=== PATIENT | female | born 1960 | race Caucasian/White ===

== ENCOUNTER 2019-05-08 07:56 | Outpatient (CLI) | payer OTHER, SELFPAY ==
--- NOTE | ~2019-05-08 | MM_ITS ---
EXAMINATION: MM screening nicolasa BI w cecile HISTORY: Screening mammogram, family history of breast cancer in her mother. TECHNIQUE: Craniocaudal and mediolateral oblique 3-D tomosynthesis images were obtained and synthetic 2-D images were generated. CAD analysis was submitted and interpreted. COMPARISON: 05/06/2018, 05/03/2017, 04/25/2016 BREAST PARENCHYMAL COMPOSITION: There are scattered areas of fibroglandular density. FINDINGS: Scattered benign-appearing calcifications are present. A mass in the upper outer quadrant o f the right breast is stable on multiple prior examinations, consistent with a benign finding. There is no evidence of suspicious mass, calcification, or architectural distortion to suggest malignancy i n either breast. There has been no suspicious interval change. IMPRESSION: 1. No mammographic evidence of malignancy. 2. Recommend routine screening mammography in one year. BI-RADS Category 2: Benign finding(s). Reviewed, dictated and finalized at location A. OR DIGITAL DESIGNER
== END 2019-05-08 07:57 | disposition home or self-care (01) ==
LOC: ANHIMG 07:59
PROVIDERS: PCP Internal Medicine; Visit Provider Student in an Organized Health Care Education/Training Program
DX: Z12.31 Encounter for screening mammogram for malignant neoplasm of breast (principal)
CPT/HCPCS: 77063; 77067

== ENCOUNTER → 2019-12-03 15:12 | Outpatient (CLI) | payer OTHER, SELFPAY ==
--- NOTE | ~2019-12-03 | XR_ITS ---
XR foot RT min 3V DATE: 12/03/2019 16:14 INDICATION: Right foot pain TECHNIQUE: 4 views COMPARISON: 06/05/2016 right foot FINDINGS: There is plantar calcaneal enthesopathy. There is osteoarthritis primarily at the articulation of the navicular with the cuneiform bones, at t he fourth and fifth tarsometatarsal areas and distal interphalangeal joint of the third digit. No fracture, dislocation, periosteal reaction or bone destruction is detected. IMPRESSION: Polyarticular osteoarthritis Plantar calcaneal enthesopathy Reviewed, dictated and finalized at location A.
== END ==
PROVIDERS: Visit Provider Internal Medicine
DX: M19.071 Primary osteoarthritis, right ankle and foot (principal); M77.31 Calcaneal spur, right foot
CPT/HCPCS: 73630

== ENCOUNTER 2020-05-10 08:54 | Outpatient (CLI) | payer OTHER, SELFPAY ==
--- NOTE | ~2020-05-10 | MM_ITS ---
EXAMINATION: MM screening nicolasa BI w cecile HISTORY: Screening mammogram TECHNIQUE: Craniocaudal and mediolateral oblique 3-D tomosynthesis images were obtained and synthetic 2-D images were generated. CAD analysis was submitted and interpreted. COMPARISON: May 08, 2019, May 06, 2018, May 03, 2017 bilateral digital screening mammogra m examinations BREAST PARENCHYMAL COMPOSITION: There are scattered areas of fibroglandular density. FINDINGS: There is a 3 mm mass in the lower central anterior right breast at approximately 5:30 o'domi ck. Diagnostic right mammogram and right breast ultrasound examination are recommended. Otherwise there is no evidence of suspicious mass, calcification, or architectural distortion to sugg est malignancy in either breast. There has been no other suspicious interval change. Bilateral benign calcifications. IMPRESSION: 1. 3 mm mass at approximately 5:30 o'clock, right breast 2. Diagnostic right mammogram and right breast ultrasound examination are recommended. BI-RADS Category 0: Incomplete: Needs additional imaging evaluation. Reviewed, dictated and finalized at location A. [employer] IMPRESSION: 1. 3 mm mass at approximately 5:30 o'clock, right breast 2. Diagnostic right mammogram and right breast ultrasound examination are recom mended. BI-RADS Category 0: Incomplete: Needs additional imaging evaluation.
--- NOTE | ~2020-05-10 | DEXA_ITS ---
Bone Density Report Name: Ketty Birmingham Age: 59 Sex: Female Ethnicity: White Date of : 1960 Indication: postmenopausal; height loss; hysterectomy; Referring Provider: Catie Seo Study: Bone densitometry was performed. Exam Date: May 10, 2020 Accession number: [id number] Bone Density: Region BMD T-score Z-score Classification AP Spine (L1-L4) 1.139 0.8 2.4 Normal Femoral Neck (Left) 0.719 -1.2 0.2 Osteopenia Total Hip (Left) 0.891 -0.4 0.6 Normal Total Hip Bilateral Avg 0.870 -0.6 0.5 Normal Femoral Neck (Right) 0.725 -1.1 0.3 Osteopenia Total Hip (Right) 0.848 -0.8 0.3 Normal World Health Organization criteria for BMD impression classify patients as: Normal (T-score at or above -1.0), Osteopenia (T-score between -1.0 and -2.5), or Osteoporosis (T-score at or below -2.5). 10-year Fracture Risk(1): Major Osteoporotic Fracture 7.0% Hip Fracture 0.5% Reported Risk Factors: [place] (), Neck BMD=0.719, BMI=38.4 (1) FRAX(R) Version 3.08. Fracture probability calculated for an untreated patient. Fracture probability may be lower if the patient has received treatment. Previous Exams: Region Exam Age BMD T-score BMD Change BMD Change Date g/cm2 vs Baseline vs Previous AP Spine(L1-L4) 05/10/2020 59 1.139 0.8 -0.171(-13.1%) -0.021(-1.8%)# 02/27/2012 51 1.160 1.0 -0.151(-11.5%) -0.151(-11.5%) 07/23/2009 49 1.310 2.4 Total Hip(Left) 05/10/2020 59 0.891 -0.4 -0.127(-12.5%) -0.109(-10.9%) 05/06/2018 57 1.000 0.5 -0.018(-1.7%)# 0.024(2.4%) 04/25/2016 55 0.977 0.3 -0.041(-4.1%)# -0.001(-0.1%) 03/02/2014 53 0.977 0.3 -0.041(-4.0%)# 0.001(0.1%)# 02/27/2012 51 0.977 0.3 -0.041(-4.0%)# -0.041(-4.0%)# 07/23/2009 49 1.018 0.6 Total Hip(Right) 05/10/2020 59 0.848 -0.8 -0.156(-15.6%) -0.101(-10.7%) 05/06/2018 57 0.950 0.1 -0.055(-5.5%)# 0.057(6.3%)* 04/25/2016 55 0.893 -0.4 -0.112(-11.1%) 0.055(6.5%)* 03/02/2014 53 0.838 -0.9 -0.167(-16.6%) -0.103(-11.0%) 02/27/2012 51 0.941 0.0 -0.063(-6.3%)# -0.063(-6.3%)# 07/23/2009 49 1.005 0.5 *Denotes significance at 95% confidence level, LSC for AP Spine = 0.022 g/cm2, LSC for Total Hip = 0.027 g/cm2 Clinical Information Provided by Patient: Has used the following medications: Vitamin D, Calcium Has the following medical conditions: Hysterectomy Patient maximum height was 60 Menopause Age: 51 No regular weight bearing exercise Drinks caff
== END 2020-05-10 08:55 | disposition home or self-care (01) ==
PROVIDERS: PCP Internal Medicine; Visit Provider Student in an Organized Health Care Education/Training Program
DX: Z12.31 Encounter for screening mammogram for malignant neoplasm of breast (principal); Z78.0 Asymptomatic menopausal state; R92.8 Other abnormal and inconclusive findings on diagnostic imaging of breast; M85.89 Other specified disorders of bone density and structure, multiple sites
CPT/HCPCS: 77063; 77067; 77080

== ENCOUNTER 2020-06-03 13:30 | Outpatient (CLI) | payer OTHER, SELFPAY ==
--- NOTE | ~2020-06-03 | MMUS_ITS ---
EXAMINATION: MM diagnostic nicolasa RT w cceile, US breast RT limited HISTORY: Follow-up 3 mm right breast mass TECHNIQUE: Additional 3-D tomosynthesis images of the right breast were performed and synthetic 2-D i mages were generated. CAD analysis was submitted and interpreted. High resolution right breast ultras ound was performed. COMPARISON: Comparison to multiple prior studies sequentially, with oldest reviewed study dated 04/25. BREAST PARENCHYMAL COMPOSITION: Breast composed of scattered areas of fibroglandular density. FINDINGS: MAMMOGRAPHIC FINDINGS: There is a small 2-3 mm circumscribed benign-appearing mass lower inner quadrant of the right breast near the nipple. There are benign right breast calcifications. No suspicious architectural distortion or clustered calcifications. ULTRASOUND: Limited right breast ultrasound: At 9:00 in the subareolar location of the right breast there is a mi ldly prominent duct with adjacent calcification causing shadowing. No suspicious masses are identifie d to suggest malignancy. IMPRESSION: 1. Probable benign 2-3 mm right breast mass, lower inner quadrant. No definite sonographic correlate. 2. Recommend 6 month follow-up diagnostic right mammogram BI-RADS category 3, probably benign findings. Reviewed, dictated and finalized at location A. E PATCH MOLDER IMPRESSION: 1. Probable benign 2-3 mm right breast mass, lower inner quadrant. No definite sonographic correlate. 2. Recommend 6 month follow-up diagnostic right mammogram BI-RADS category 3, probably benign findings.
== END 2020-06-03 13:31 | disposition home or self-care (01) ==
LOC: ANHIMG 13:32
PROVIDERS: PCP Internal Medicine; Visit Provider Student in an Organized Health Care Education/Training Program
DX: R92.8 Other abnormal and inconclusive findings on diagnostic imaging of breast (principal)
CPT/HCPCS: 76642; 77061; 77065; G0279

== ENCOUNTER 2020-09-21 09:11 | Emergency (ER) | payer OTHER, SELFPAY ==
[2020-09-21 09:14] VITALS: BP 141/99; PULSE 68; RESP 15; TEMP 36.8; O2SAT 99
[2020-09-21] MEDS: diphenhydrAMINE HCl INJ 50 MG/ML VIAL 25 MG IV PUSH (09:46)
[2020-09-21] MEDS: FAMOTIDINE 20 MG/2 ML VIAL IV PUSH (09:47)
[2020-09-21] MEDS: EPINEPHrine HCL INJ 1 MG/ML AMPUL 0.3 MG IM (09:48)
--- NOTE | 2020-09-21 12:53 | ED.GENADULT ---
HPI - General Adult General Chief complaint: Allergic Reaction Stated complaint: ? Allergic reaction Time Seen by Provider: 09/21/20 09:14 Source: patient, family and RN notes reviewed Mode of arrival: ambulatory Limitations: no limitations History of Present Illness HPI narrative: Patient is a 60-year-old female who presents noting the sensation of her throat tightening and tongue swelling that began at 830 this morning after a sneezing fit patient denies similar occurrence in the past patient took 25 mg of Benadryl just prior to arrival and notes on arrival to the emergency department she feels as though her symptoms have improved. Patient denies any similar occurrence in the past or known allergic responses patient notes she is on lisinopril but has been for over 20 years. With no issues in the past Related Data Home Medications Medication Instructions Recorded Confirmed multivitamin 1 tablet PO DAILY 08/24/20 08/24/20 Allergies Allergy/AdvReac Type Severity Reaction Status Date / Time Sulfa (Sulfonamide Allergy Unknown Hives Verified 09/21/20 09:27 Antibiotics) sulfanilamide Allergy Unknown Hives Verified 09/21/20 09:27 Review of Systems Review of Systems: All systems reviewed & are unremarkable except as noted in HPI and below PMFSH Past Medical History Medical History Arthritis Heart murmur History of vaginal delivery x 2 Hypertension Surgical History Surgical History History of carpal tunnel release History of knee replacement History of total hysterectomy with bilateral salpingo-oophorectomy (BSO) Family History Family History Mother Patient's mother is Family history of malignant neoplasm of breast in first degree relative, Onset Age: 54 Father Patient's father is Hypertension, Onset Age: 70 Family history of chronic obstructive pulmonary disease, Onset Age: 70 Sibling Patient's sister is in good health Social History Social History Smoking status: Former smoker Second hand tobacco smoke exposure: No Smoking end date: 04/02/85 Alcohol intake: current Exam Narrative: Exam Narrative: GENERAL: Well-appearing, well-nourished, and in no acute distress. HEAD: Normocephalic, atraumatic. EYES: PERRLA and EOMI. ENT: Nares clear, no rhinorrhea or epistaxis. Mucous membranes moist. Minimal angioedema involving the uvula with slight tonsillar hypertrophy no other abnormalities in the oropharynx patient notes subjective tongue swelling very difficult to appreciate on exam NECK: Supple. No adenopathy or masses. No stridor CHEST: Clear to auscultation. No respiratory distress. No wheezes rales or rhonchi HEART: Regular rate and rhythm. No murmur heard. EXTREMITIES: Normal range of motion. No edema. SKIN: Warm, dry, no rash. NEURO: No focal deficits. Alert and oriented x3. Cranial nerves II through XII grossly intact PSYCH: Normal mood and affect. Course Course Emergency Course: Patient in the room in no distress aware of case findings treatment plan diagnosis discussion with primary care and agrees to follow-up as instructed patient is afebrile nontoxic-appearing no distress was given medications with improvement feels much better at this time agrees to follow-up as instructed and is aware of recommendations by her primary care doctor and agrees with this plan Consultations Consultation #1: Discussed case with Dr. Lewis the patient's primary care doctor who will follow the patient in clinic to review her lisinopril and for reevaluation of her reaction and agrees with the treatment plan for discharge home Date: 09/21/20 Time: 12:58 Vital Signs Vital signs: Vital Signs Temperature 98.2 F 09/21/20 09:14 Pulse Rate
[2020-09-21 13:17] VITALS: BP 142/71; PULSE 97; RESP 18; O2SAT 96
== END 2020-09-21 13:19 | disposition home or self-care (01) ==
PROVIDERS: Emergency Provider Emergency Medicine; PCP Internal Medicine
DX: T78.3XXA Angioneurotic edema, initial encounter (principal); M19.90 Unspecified osteoarthritis, unspecified site; I10 Essential (primary) hypertension; Z87.891 Personal history of nicotine dependence
CPT/HCPCS: 96372; 96374; 96375; 99284; J0171; J1100; J1200

== ENCOUNTER 2020-12-13 14:02 | Outpatient (CLI) | payer OTHER, SELFPAY ==
--- NOTE | ~2020-12-13 | MMUS_ITS ---
EXAMINATION: MM diagnostic nicolasa RT w cecile, US breast RT limited HISTORY: Follow-up right breast mass TECHNIQUE: Additional 3-D tomosynthesis images of right were performed and synthetic 2-D images were generated. CAD analysis was submitted and interpreted. High resolution Limited right breast ultrasoun d was performed. COMPARISON: Comparison to multiple prior studies sequentially, with oldest reviewed study dated 04/2017. BREAST PARENCHYMAL COMPOSITION: Breast composed of scattered areas of fibroglandular density. FINDINGS: MAMMOGRAPHIC FINDINGS: There is a small mass in the upper outer quadrant of the right breast, middle depth. No suspicious ca lcifications or architectural distortion. ULTRASOUND: Limited right breast ultrasound: At 10:00, 5 cm from the nipple, there are 2 adjacent cysts measuring up to 5 mm in aggregate. No suspicious masses to suggest malignancy. IMPRESSION: 1. No evidence for malignancy in the right breast. Benign findings. 2. Routine yearly screening mammogram and regular clinical breast examination are recommended. BI-RADS Category 2: Benign finding(s). Reviewed, dictated and finalized at location A. IMPRESSION: 1. No evidence for malignancy in the right breast. Benign findings. 2. Routine yearly screening mammogram and regular clinical breast examination a re recommended. BI-RADS Category 2: Benign finding(s).
== END 2020-12-13 14:03 | disposition home or self-care (01) ==
LOC: ANHIMG 14:03
PROVIDERS: PCP Internal Medicine; Visit Provider Student in an Organized Health Care Education/Training Program
DX: N63.11 Unspecified lump in the right breast, upper outer quadrant (principal); N60.01 Solitary cyst of right breast
CPT/HCPCS: 76642; 77061; 77065; G0279

== ENCOUNTER 2021-05-23 08:53 | Outpatient (CLI) | payer OTHER, SELFPAY ==
--- NOTE | ~2021-05-23 | MM_ITS ---
EXAMINATION: MM screening nicolasa BI w cecile HISTORY: Screening mammogram TECHNIQUE: Craniocaudal and mediolateral oblique 3-D tomosynthesis images were obtained and synthetic 2-D images were generated. CAD analysis was submitted and interpreted. COMPARISON: 12/13/2020 and 06/23/2020 diagnostic right mammogram and limited right breast ultrasound 05/10/2020, 05/08/2019, 05/06/2018 bilateral screening mammogram bilateral screening mammogram bilateral screening mammogram BREAST PARENCHYMAL COMPOSITION: There are scattered areas of fibroglandular density. FINDINGS: There are benign calcifications, primarily secretory type. There is no evidence of suspicio us mass, calcification, or architectural distortion to suggest malignancy in either breast. There has been no suspicious interval change. IMPRESSION: 1. No mammographic evidence of malignancy. 2. Recommend routine screening mammography in one year. BI-RADS Category 2: Benign finding(s). Reviewed, dictated and finalized at location A. OON DIPPER
== END 2021-05-23 08:54 | disposition home or self-care (01) ==
LOC: ANHIMG 08:54
PROVIDERS: PCP Internal Medicine; Visit Provider Student in an Organized Health Care Education/Training Program
DX: Z12.31 Encounter for screening mammogram for malignant neoplasm of breast (principal)
CPT/HCPCS: 77063; 77067

== ENCOUNTER 2022-05-25 07:47 | Outpatient (CLI) | payer OTHER, SELFPAY ==
--- NOTE | ~2022-05-25 | DEXA_ITS ---
Bone Density Report Name: ROBB MOELLER Age: 62 Sex: Female Ethnicity: White Date of : 1960 Indication: postmenopausal; screening for osteoporosis; height loss; hysterectomy; Referring Provider: ASTRID MURILLO Study: Bone densitometry was performed. Exam Date: May 25, 2022 Accession number: [id number] Bone Density: Region BMD T-score Z-score Classification AP Spine(L1-L4) 1.125 0.7 2.4 Normal Femoral Neck (Left) 0.670 -1.6 -0.2 Osteopenia Total Hip (Left) 0.929 -0.1 1.1 Normal Femoral Neck (Right) 0.663 -1.7 -0.2 Osteopenia Total Hip (Right) 0.898 -0.4 0.8 Normal Total Hip Mean 0.913 -0.3 1.0 Normal World Health Organization criteria for BMD impression classify patients as: Normal (T-score at or above -1.0), Osteopenia (T-score between -1.0 and -2.5), or Osteoporosis (T-score at or below -2.5). 10-year Fracture Risk(1): Major Osteoporotic Fracture 8.3% Hip Fracture 0.8% Reported Risk Factors: [place] (), Neck BMD=0.670, BMI=37.2 (1) FRAX(R) Version 3.08. Fracture probability calculated for an untreated patient. Fracture probability may be lower if the patient has received treatment. Previous Exams: Region Exam Age BMD T-score BMD Change BMD Change Date g/cm2 vs Baseline vs Previous AP Spine (L1-L4) 05/25/2022 62 1.125 0.7 -0.035 (-3.0%) -0.014 (-1.2%) 05/10/2020 59 1.139 0.8 -0.021 (-1.8%) -0.021 (-1.8%) 02/27/2012 51 1.160 1.0 Total Hip(Left) 05/25/2022 62 0.929 -0.1 -0.048 (-4.9%) 0.038 (4.3%)* 05/10/2020 59 0.891 -0.4 -0.086 (-8.8%) -0.109 (-10.9% 05/06/2018 57 1.000 0.5 0.024 (2.4%)# 0.024 (2.4%) 04/25/2016 55 0.977 0.3 0.000 (0.0%)# -0.001 (-0.1%) 03/02/2014 53 0.977 0.3 0.001 (0.1%)# 0.001 (0.1%)# 02/27/2012 51 0.977 0.3 Total Hip(Right) 05/25/2022 62 0.898 -0.4 -0.044 (-4.7%) 0.049 (5.8%)* 05/10/2020 59 0.848 -0.8 -0.093 (-9.9%) -0.101 (-10.7% 05/06/2018 57 0.950 0.1 0.008 (0.9%)# 0.057 (6.3%)* 04/25/2016 55 0.893 -0.4 -0.048 (-5.1%) 0.055 (6.5%)* 03/02/2014 53 0.838 -0.9 -0.103 (-11.0% -0.103 (-11.0% 02/27/2012 51 0.941 0.0 *Denotes significance at 95% confidence level, LSC for AP Spine = 0.022 g/cm2, LSC for Total Hip = 0.027 g/cm2 # Denotes dissimilar scan types or analysis methods Clinical Information Provided by Patient: Has the following medical conditions: Hysterectomy Patient maximum height was 59 Menopause Age: 51 No
--- NOTE | ~2022-05-25 | MM_ITS ---
EXAMINATION: MM screening nicolasa BI w cecile HISTORY: Screening mammogram TECHNIQUE: Craniocaudal and mediolateral oblique 3-D tomosynthesis images were obtained and synthetic 2-D images were generated. CAD analysis was submitted and interpreted. COMPARISON: 05/23/2021 bilateral screening mammogram 12/13/2020 diagnostic right mammogram and limited right breast ultrasound 3. diagnostic right mammogram and limited right breast ultrasound , , 05/2018 bilateral screening mammogram examinations BREAST PARENCHYMAL COMPOSITION: There are scattered areas of fibroglandular density. FINDINGS: Approximately 3.3 x 3.7mm mass is noted anteriorly in the lower outer left breast near mid sagittal plane. Diagnostic right mammogram and right breast ultrasound examination are recommended. Scattered bilateral benign calcifications. No suspicious mass, architectural distortion, malignant ca lcification, skin thickening or retraction or significant new or developing density is noted otherwis e. IMPRESSION: 1. 3.3 x 3.7 mm mass in the anterior lower outer right breast near mid sagittal plane. 2. Diagnostic right mammogram and right breast ultrasound examination are recommended BI-RADS Category 0: Incomplete: Needs additional imaging evaluation. Reviewed, dictated and finalized at location A. E ERECTOR SUPERVISOR IMPRESSION: 1. 3.3 x 3.7 mm mass in the anterior lower outer right breast near mid sagittal plane. 2. Diagnostic right mammogram and right breast ultrasound examination are recom mended BI-RADS Category 0: Incomplete: Needs additional imaging evaluation.
== END 2022-05-25 07:48 | disposition home or self-care (01) ==
PROVIDERS: PCP Internal Medicine; Visit Provider Student in an Organized Health Care Education/Training Program
DX: Z12.31 Encounter for screening mammogram for malignant neoplasm of breast (principal); Z78.0 Asymptomatic menopausal state; R92.8 Other abnormal and inconclusive findings on diagnostic imaging of breast; M85.852 Other specified disorders of bone density and structure, left thigh; M85.851 Other specified disorders of bone density and structure, right thigh
CPT/HCPCS: 77063; 77067; 77080

== ENCOUNTER 2022-06-09 13:17 | Outpatient (CLI) | payer OTHER, SELFPAY ==
--- NOTE | ~2022-06-09 | MMUS_ITS ---
EXAMINATION: MM diagnostic nicolasa RT w cecile, US breast RT limited HISTORY: Right breast mass TECHNIQUE: Additional 3-D tomosynthesis images of the right breast were performed and synthetic 2-D i mages were generated. CAD analysis was submitted and interpreted. High resolution limited right breas t ultrasound was performed. COMPARISON: 05/25/2022, 05/03/2021, 12/13/2020, 06/03/2020, 05/10/2020 FINDINGS: MAMMOGRAPHIC FINDINGS: A 3 mm mass of the lower right breast at the 6:00 location hasn't appearance similar prior mammograms with spot compression. There has been no suspicious interval change. ULTRASOUND: There is no evidence of focal abnormal solid or cystic mass in the vicinity of the mammographic findi ng in question. IMPRESSION: 1. No mammographic or sonographic evidence of malignancy. 2. Recommend routine screening mammography in one year. BI-RADS Category 2: Benign finding(s). Reviewed, dictated and finalized at location A. ER SALES IMPRESSION: 1. No mammographic or sonographic evidence of malignancy. 2. Recommend routine screening mammography in one year. BI-RADS Category 2: Benign finding(s).
== END 2022-06-09 13:18 | disposition home or self-care (01) ==
PROVIDERS: PCP Internal Medicine; Visit Provider Obstetrics & Gynecology
DX: R92.8 Other abnormal and inconclusive findings on diagnostic imaging of breast (principal)
CPT/HCPCS: 76642; 77061; 77065; G0279

== ENCOUNTER 2022-12-06 08:46 | Outpatient (CLI) | payer OTHER, SELFPAY ==
--- NOTE | 2022-12-08 12:42 | WPDHOLTEREM ---
Holter/Event Monitor Holter/Event Monitor Date of procedure: 12/06/22 Holter/Event Procedure: 24 Hr Holter Monitor Indications: Palpitations Conclusion: 1. 28 hour holter monitor on 12/06/22. 2. Underlying rhythm is sinus rhythm. HR range 45-129 bpm; average HR 80 bpm. HR at 45 bpm was at 04:49. HR at 129 bpm was at 14:30. 3. There are 65 premature supraventricular complexes and 2 supraventricular couplets. No supraventricular tachycardia. 4. There are 11,742 premature ventricular complexes, 4 ventricular couplets, 9 ventricular bigeminy, 612 ventricular trigeminy. No ventricular tachycardia. 5. No sinoatrial or atrioventricular blocks. No significant pauses greater than 2 seconds. 6. No symptoms available for correlation.
== END 2022-12-06 08:47 | disposition home or self-care (01) ==
LOC: ANHCARD 08:48
PROVIDERS: PCP Internal Medicine; Visit Provider Internal Medicine
DX: R00.2 Palpitations (principal)
CPT/HCPCS: 93225; 93226

== ENCOUNTER → 2023-04-11 16:15 | Outpatient (CLI) | payer OTHER, SELFPAY ==
--- NOTE | ~2023-04-11 | XR_ITS ---
EXAM: [id number] DATE: 04/11/2023 17:06 HISTORY: Pain with bruising, fell 3 weeks ago. COMPARISON: None available. FINDINGS: Decreased mineralization. No fracture or dislocation. No lytic or blastic lesion. Moderate patellar osteophytosis. Uncomplicated appearing total knee arthroplasty hardware. No erosion or igor osteal change. Moderate volume joint fluid. Thickening and indistinct soft tissue planes in the dista l quadriceps muscles. IMPRESSION: No acute osseous finding or hardware related complication. Possible distal quadriceps muscle strain. Moderate volume joint effusion. Reviewed, dictated and finalized at location K. H ATTENDANT
== END ==
PROVIDERS: PCP Physician Assistant; Visit Provider Physician Assistant
DX: M25.461 Effusion, right knee (principal)
CPT/HCPCS: 73560

== ENCOUNTER 2023-06-01 15:33 | Outpatient (CLI) | payer OTHER, SELFPAY ==
--- NOTE | ~2023-06-01 | MM_ITS ---
EXAMINATION: MM screening nicolasa BI w cecile HISTORY: Screening mammogram TECHNIQUE: Craniocaudal and mediolateral oblique 3-D tomosynthesis images were obtained and synthetic 2-D images were generated. CAD analysis was submitted and interpreted. COMPARISON: 06/09/2022 diagnostic right mammogram and limited right breast ultrasound 05/25/2021, 05/23/2021 bilateral screening mammogram examinations 12/13/2020 diagnostic right mammogram and limited right breast ultrasound 05/10/2020 bilateral screening mammogram BREAST PARENCHYMAL COMPOSITION: There are scattered areas of fibroglandular density. FINDINGS: There is interval enlargement of an opacity in the lower mid right breast, currently measur ing approximately 3.4 mm compared to approximately 1.7 mm on May 10, 2020 and approximately 2.7 m m compared to May 25, 2022. Diagnostic right mammogram and right breast ultrasound examination a re recommended. Small low-density circumscribed opacities are noted posteriorly in the outer aspect of each breast on craniocaudal projection, likely intramammary lymph nodes. Bilateral diagnostic mammography is recomm ended including rotated lateral craniocaudal views, with ultrasound if required. There are scattered bilateral benign calcifications. IMPRESSION: 1. Slowly enlarging approximately 3.4 mm mass at approximately 6:00 position the right breast; diagno stic right mammographic views are recommended in addition to right breast ultrasound 2. Bilateral posterior outer small low-density circumscribed opacities, likely intramammary lymph nod es; additional diagnostic mammographic views are recommended, with ultrasound if required BI-RADS Category 0: Incomplete: Needs additional imaging evaluation. Reviewed, dictated and finalized at location A. TRONIC WARFARE SPECIALIST IMPRESSION: 1. Slowly enlarging approximately 3.4 mm mass at approximately 6:00 position th e right breast; diagnostic right mammographic views are recommended in addition to right breast ultrasound 2. Bilateral posterior outer small low-density circumscribed opacities, likely intramammary lymph nodes; additional diagnostic mammographic views are recommen ded, with ultrasound if required BI-RADS Category 0: Incomplete: Needs additional imaging evaluation.
== END 2023-06-01 15:34 | disposition home or self-care (01) ==
LOC: ANHIMG 15:47
PROVIDERS: PCP Physician Assistant; Visit Provider Obstetrics & Gynecology
DX: Z12.31 Encounter for screening mammogram for malignant neoplasm of breast (principal); R92.8 Other abnormal and inconclusive findings on diagnostic imaging of breast
CPT/HCPCS: 77063; 77067

== ENCOUNTER 2023-06-28 10:43 | Outpatient (CLI) | payer OTHER, SELFPAY ==
--- NOTE | ~2023-06-28 | MMUS_ITS ---
EXAMINATION: MM diagnostic nicolasa BI w cecile, US breast LT limited, US breast RT complete HISTORY: 06/01/2023 screening mammogram findings: Slowly enlarging approximately 3.4 mm mass was reported at approximately 6:00 right breast. Bilateral posterior outer small low-density circumscribed opacities. TECHNIQUE: Additional 3-D tomosynthesis images of both breasts were performed and synthetic 2-D image s were generated. CAD analysis was submitted and interpreted. High resolution left upper outer quadra nt ultrasound and right complete breast ultrasound examination including all 4 quadrants and subareol ar area was performed. COMPARISON: 06/01/2023 bilateral screening mammogram 06/09/2022 diagnostic right mammogram and limited right breast ultrasound 05/25/2022, 05/23/2021 bilateral screening mammogram examinations BREAST PARENCHYMAL COMPOSITION: There are scattered areas of fibroglandular density. FINDINGS: MAMMOGRAPHIC FINDINGS: Right breast: Approximately 3.6 mm hypodensity opacity is noted anteriorly in the lower inner quadrant of the right breast. Left breast: Spiculated approximately 7 mm mass is suggested in the upper outer quadrant of left ofe st anteriorly. ULTRASOUND: Right breast: 10:00 6 cm from nipple: 5.7 x 3 x 3.6 mm circumscribed oval hypoechoic lesion without shadowing. 3:00 subareolar area: Mildly irregular hypoechoic solid lesion measuring approximately 3.6 x 4 mm. No internal vascularity is identified. The irregular margins are of concern. Ultrasound-guided biopsy i s recommended. 3 x 4.8 mm parallel circumscribed hypoechoic lesion Left breast: 1:00 6 cm from nipple: There is an irregular hypoechoic solid mass which measures approximately 7 x 1 0 mm dimension, with some posterior shadowing. This lesion is suspicious. Ultrasound-guided biopsy is recommended. IMPRESSION: 1. Suspicious masses of right breast at 3:00 and at left breast at 1:00 2. Ultrasound-guided biopsy of these 2 lesions is recommended BI-RADS category 4, suspicious findings. Dr. Vanegas telephoned the report and ultrasound-guided biopsy recommendations on 06/20/2023 at 1527 hour s to Haily Song Reviewed, dictated and finalized at location [facility]. IMPRESSION: 1. Suspicious masses of right breast at 3:00 and at left breast at 1:00 2. Ultrasound-guided biopsy of these 2 lesions is recommended BI-RADS category 4, suspicious findings. Dr. Vanegas telephoned the report and ultrasound-guided biopsy recommendations on 06/20/2023 at 1527 hours to Haily Song IMPRESSION: 1. Suspicious masses of right breast at 3:00 and at left breast at 1:00 2. Ultrasound-guided biopsy of these 2 lesions is recommended BI-RADS category 4, suspicious findings. Dr. Vanegas telephoned the report and ultrasound-guided biopsy recommendations on 06/20/2023 at 1527 hours to Haily Song
== END 2023-06-28 10:44 | disposition home or self-care (01) ==
PROVIDERS: PCP Physician Assistant; Visit Provider Obstetrics & Gynecology
DX: R92.8 Other abnormal and inconclusive findings on diagnostic imaging of breast (principal)
CPT/HCPCS: 76641; 76642; 77062; 77066; G0279

== ENCOUNTER 2023-08-09 08:09 | Outpatient (CLI) | payer OTHER, SELFPAY ==
--- NOTE | ~2023-08-09 | MMUS_ITS ---
EXAMINATION: US GUIDED NEEDLE BIOPSY DATE: 08/09/2023 11:20 CDT INDICATION: Abnormal sonographic masses of right breast at 3:00 and left breast at 1:00 TECHNIQUE AND FINDINGS: The risks and potential benefits of the procedure were discussed with the patient, and written inform ed consent was obtained. Timeout procedure was performed. After sterile preparation of the right ofe st, 1% lidocaine was utilized for local anesthesia. A 12 G spring-loaded biopsy gun needle was advanced to the edge of the region of interest of the rigalton t breast at 3:00 from a medial approach utilizing sonographic guidance. A total of 4 tissue core ramirez ples were obtained through the lesion. A radiopaque marker was then placed at the biopsy site. Hemost asis was achieved. A sterile bandage was applied. A 12-gauge spring-loaded biopsy gun needle was then advanced to the edge of the region of interest of the left breast at 1:00 from a medial approach utilizing sonographic guidance. A total of 3 tissue c ore samples were obtained. A radiopaque marker was then placed at the biopsy site. Hemostasis was ach ieved. A sterile bandage was applied. The patient tolerated procedure well and there was no evidence of immediate complication. The sumeet augustin was given verbal instructions prior to departing from the department. A two view mammogram of each breast was performed to document tissue marker clip placement. The tissue samples were submitted to [facility] pathology for histologic analysis. IMPRESSION: Ultrasound guided biopsy right 3:00 left 1:00 breast masses with biopsy marker placement. Please refer to pathology report for histologic analysis. Reviewed, dictated and finalized at [facility]. Reviewed, dictated and finalized at [facility]. IMPRESSION: Ultrasound guided biopsy right 3:00 left 1:00 breast masses with biopsy marker placement. Please refer to pathology report for histologic analysis. IMPRESSION: Ultrasound guided biopsy right 3:00 left 1:00 breast masses with biopsy marker placement. Please refer to pathology report for histologic analysis. IMPRESSION: Ultrasound guided biopsy right 3:00 left 1:00 breast masses with biopsy marker placement. Please refer to pathology report for histologic analysis.
== END 2023-08-09 08:10 | disposition home or self-care (01) ==
PROVIDERS: PCP Physician Assistant; Visit Provider Surgery
DX: R92.8 Other abnormal and inconclusive findings on diagnostic imaging of breast (principal); N63.10 Unspecified lump in the right breast, unspecified quadrant; N63.20 Unspecified lump in the left breast, unspecified quadrant
CPT/HCPCS: 19083; 19084; 88305; 88313; 88342; 88360; A4648

== ENCOUNTER → 2024-04-14 15:25 | Outpatient (REF) | payer OTHER, SELFPAY | LOC: ANHLAB 15:25 | PROVIDERS: PCP Internal Medicine; Visit Provider Plastic Surgery | DX: C44.612 Basal cell carcinoma of skin of right upper limb, including shoulder (principal) | CPT/HCPCS: 88305 ==